=== PATIENT | male | born 1935 | race Two or more races ===

== ENCOUNTER → 2023-12-03 | Outpatient (CLI) | payer OTHER ==
[2023-12-03] VITALS (9 sets, daily range): BP systolic 112–136; BP diastolic 57–76; PULSE 63–69; RESP 15–20; TEMP 98.3; O2SAT 96–99
[~2023-12-03] MED LIST: LISI-275 PO; LOVA20TA4 PO
[2023-12-03] MEDS: fentaNYL CITRATE 100 MCG/2 ML VL IV ONE (08:30)
[2023-12-03] MEDS: MIDAZOLAM HCL 2MG/2ML 2ml VIAL (1mg/ml) IV ONE (08:30)
[2023-12-03] MEDS: LIDOCAINE 2%HCL (LOCAL ANESTH.) INJ 10ml MDV ONE (08:34)
== END | disposition home or self-care (01) ==
LOC: XYW 08:21
DX: R93.2 Abnormal findings on diagnostic imaging of liver and biliary tract (principal); K76.89 Other specified diseases of liver; R16.0 Hepatomegaly, not elsewhere classified
CPT/HCPCS: 47000; 74150; 77012; J2001; 10005

== ENCOUNTER 2024-02-19 22:03 | Inpatient (IN) | payer OTHER ==
[~2024-02-19] VITALS: Ht 175.3 cm; Wt 86.7 kg
[2024-02-19 22:15] VITALS: RESP 24; O2SAT 97
[2024-02-19 23:34] LABS: Urine Bacteria None Seen /hpf (None Seen)
[2024-02-20 00:03] LABS: Urine Blood Negative /uL (Negative); Urine Clarity Turbid (Clear); Urine Color Yellow (Yellow); Urine Hyaline Cast MANY /lpf (0 - 2); Urine Mucus FEW (None Seen); Urine Protein, UAD 1+ (Negative); Urine Specific Gravity 1.022 (1.001-1.035); Urine Urobilinogen Normal (Negative); Urine WBC 2 /hpf (0 - 3)
[2024-02-20] MEDS: SODIUM CHLORIDE 0.9% 1,000 ML IV ONE ×2 (00:25→20:39)
[2024-02-20] MEDS: ONDANSETRON HCL 4 MG/2 ML VIAL IV ONE (00:26)
[2024-02-20] MEDS: KETOROLAC TROMETH 30 MG/ML 1ML VIAL IV ONE (00:26)
[2024-02-20 00:49] LABS: Red Blood Cells 5.28 10^6/uL (4.5-5.90)
[2024-02-20 00:54] LABS: Red Cell Distribution Width 19.1 % (11.8-14.3)
[2024-02-20 00:56] LABS: Hemoglobin 11.9 g/dL (13.5-17.5); Mean Corpuscular Hemoglobin 22.5 pg (28.0-32.0); Mean Corpuscular Hgb Conc. 31.2 g/dL (32.0-36.0); Mean Corpuscular Volume 72.1 fL (80.0-100.0); Platelet Count (auto) 439 10^3/uL (140-450)
[2024-02-20 00:57] LABS: Albumin 3.1 g/dL (3.2-4.8); Alkaline Phosphatase 627 U/L (46-116); Anion Gap 16 (5-15); BUN/Creatinine Ratio 20.2 (10.0-20.0); Blood Urea Nitrogen 50 mg/dL (9-23); Calcium 8.3 mg/dL (8.7-10.4); Carbon Dioxide 17 mmol/L (20-30); Chloride 87 mmol/L (98-107); Glucose 100 mg/dL (74-106); Sodium 120 mmol/L (136-145)
[2024-02-20 00:58] LABS: Bilirubin, Total 2.7 mg/dL (0.2-1.0); Total Protein 5.6 g/dL (5.7-8.2)
[2024-02-20 01:03] LABS: Basophils % (manual) 0 (0.0-2.0); Blast Cells 0; Eosinophils % (manual) 0 (0-7); Metamyelocytes % 0; Myelocytes % 0; Promyelocytes % 0; Reactive Lymphocytes 0
[2024-02-20 01:16] LABS: Alanine Aminotransferase 1374 U/L (7-40); Aspartate Aminotransferase > 6000 U/L (13-40)
[2024-02-20 01:18] LABS: Potassium 6.3 mmol/L (3.5-5.1)
[2024-02-20] MEDS: SODIUM BICARB 8.4% 50Meq/50ml SYR Vial IV ONE (01:43)
[2024-02-20] MEDS: DEXTROSE (50%) 50ML SYRG IV ONE ×2 (01:43→13:43)
[2024-02-20] MEDS: InsuLIN REG 1unit/0.01ml Soln (100units/ml) IV ONE ×2 (01:43→13:45)
[2024-02-20] MEDS: CALCIUM GLUC 1,000mg/50ml-NS 50 ML IV SCH (01:46)
[2024-02-20 02:12] LABS: Band Neutrophils % (manual) 1; Lymphocytes % (manual) 9 (10.0-50.0); Monocytes % (manual) 8 (0-12)
[2024-02-20 02:13] LABS: Hypochromia Slight; Large Platelets FEW; Platelet Estimate Adequa
[2024-02-20 06:08] LABS: Chloride 89 mmol/L (98-107); Potassium 5.3 mmol/L (3.5-5.1); Sodium 124 mmol/L (136-145)
[2024-02-20 06:09] LABS: Anion Gap 14 (5-15); Carbon Dioxide 21 mmol/L (20-30)
[2024-02-20 06:10] LABS: Calcium 8.5 mg/dL (8.7-10.4)
[2024-02-20 06:14] LABS: BUN/Creatinine Ratio 20.8 (10.0-20.0); Blood Urea Nitrogen 52 mg/dL (9-23); Glucose 109 mg/dL (74-106)
[2024-02-20] MEDS: SODIUM CHLORIDE 0.9% 1,000 ML IV SCH (12:16)
[2024-02-20 12:39] LABS: Albumin 3.2 g/dL (3.2-4.8); Alkaline Phosphatase 748 U/L (46-116); Anion Gap 15 (5-15); BUN/Creatinine Ratio 21.2 (10.0-20.0); Bilirubin, Total 3.5 mg/dL (0.2-1.0); Blood Urea Nitrogen 55 mg/dL (9-23); Calcium 8.5 mg/dL (8.7-10.4); Carbon Dioxide 20 mmol/L (20-30); Chloride 88 mmol/L (98-107); Glucose 101 mg/dL (74-106); Sodium 123 mmol/L (136-145); Total Protein 5.7 g/dL (5.7-8.2)
[2024-02-20 12:50] LABS: Potassium 5.6 mmol/L (3.5-5.1)
[2024-02-20 12:51] LABS: Alanine Aminotransferase 2739 U/L (7-40); Aspartate Aminotransferase > 6000 U/L (13-40)
[2024-02-20] MEDS: SODIUM BICARB 8.4% 50Meq/50ml SYR INJ IV ONE (13:43)
[2024-02-20] MEDS: CALCIUM GLUC 1,000mg/50ml-NS 50 ML IV ONE (13:43)
[2024-02-20] MEDS: SODIUM ZIRCONIUM CYCL 10 GM PAK PO SCH (13:43)
[2024-02-20 19:10] VITALS: PULSE 74
[2024-02-20 19:17] LABS: Alkaline Phosphatase 769 U/L (46-116); Anion Gap 16 (5-15); Aspartate Aminotransferase > 1000 U/L (13-40); BUN/Creatinine Ratio 22.2 (10.0-20.0); Bilirubin, Total 3.5 mg/dL (0.2-1.0); Blood Urea Nitrogen 62 mg/dL (9-23); Calcium 8.2 mg/dL (8.7-10.4); Carbon Dioxide 17 mmol/L (20-30); Chloride 90 mmol/L (98-107); Glucose 99 mg/dL (74-106); Potassium 5.4 mmol/L (3.5-5.1); Sodium 123 mmol/L (136-145); Total Protein 5.2 g/dL (5.7-8.2)
[2024-02-20 19:28] LABS: Alanine Aminotransferase 2749 U/L (7-40)
[2024-02-20] MEDS: FUROSEMIDE 40 MG/4 ML VIAL IV ONE (20:43)
[2024-02-20 20:58] LABS: Uric Acid 17.4 mg/dL (3.7-9.2)
[2024-02-20 21:01] LABS: Phosphorus 8.9 mg/dL (2.4-5.1)
[2024-02-20 21:50] LABS: Magnesium 2.1 mg/dL (1.6-2.6)
[2024-02-20 21:51] LABS: Phosphorus 8.6 mg/dL (2.4-5.1)
[2024-02-20] MEDS: OCTREOTIDE ACETATE 100 MCG/ML VL SUBCUT SCH (22:15)
[2024-02-20] MEDS: SODIUM BICARB 50mEq/50ml Vial 50 ML in SOD CHL 0.45% 1,000 ML IV ONE (22:19)
[2024-02-21 01:01] LABS: Alkaline Phosphatase 712 U/L (46-116); Anion Gap 14 (5-15); BUN/Creatinine Ratio 21.4 (10.0-20.0); Blood Urea Nitrogen 62 mg/dL (9-23); Calcium 7.7 mg/dL (8.7-10.4); Carbon Dioxide 20 mmol/L (20-30); Chloride 89 mmol/L (98-107); Glucose 92 mg/dL (74-106); Sodium 123 mmol/L (136-145)
[2024-02-21 01:02] LABS: Bilirubin, Total 3.2 mg/dL (0.2-1.0); Total Protein 5.3 g/dL (5.7-8.2)
[2024-02-21 01:24] LABS: Alanine Aminotransferase 2493 U/L (7-40); Aspartate Aminotransferase > 6000 U/L (13-40)
[2024-02-21] MEDS: NOREPINEPHRINE 8 MG/250ML KIT 250 ML IV SCH (02:37)
[2024-02-21] MEDS: NOREPINEPHRINE 8 MG/250ML KIT 250 ML IV ONE (02:46)
[2024-02-21] MEDS: MIDODRINE HCL 10 MG TAB PO SCH (06:00)
[2024-02-21 06:26] LABS: Albumin 3.1 g/dL (3.2-4.8); Alkaline Phosphatase 755 U/L (46-116); Anion Gap 15 (5-15); BUN/Creatinine Ratio 18.4 (10.0-20.0); Blood Urea Nitrogen 56 mg/dL (9-23); Calcium 7.9 mg/dL (8.7-10.4); Carbon Dioxide 18 mmol/L (20-30); Chloride 88 mmol/L (98-107); Glucose 83 mg/dL (74-106); Sodium 121 mmol/L (136-145)
[2024-02-21 06:27] LABS: Bilirubin, Total 3.4 mg/dL (0.2-1.0); Total Protein 5.7 g/dL (5.7-8.2)
[2024-02-21 06:43] LABS: Alanine Aminotransferase 2477 U/L (7-40); Aspartate Aminotransferase > 6000 U/L (13-40)
[2024-02-21 06:45] LABS: Potassium 5.8 mmol/L (3.5-5.1)
[2024-02-21 08:14] LABS: Base Excess -8.7 mmol/L (-2.0-3.0)
[2024-02-21] MEDS: ALBUTEROL SULF 2.5 MG/0.5ML(0.5%) NEB SOLN NEB ONE (09:47)
[2024-02-21] MEDS: DEXTROSE (50%) 50ML SYRG IV ONE (09:58)
[2024-02-21] MEDS: InsuLIN REG 1unit/0.01ml Soln (100units/ml) IV ONE (09:59)
[2024-02-21] MEDS: CALCIUM GLUC 1,000mg/50ml-NS 50 ML IV ONE (09:59)
[2024-02-21 10:19] LABS: Eosinophils # (auto) 0.1 10 ^3/uL (0-0.8); Monocytes # (auto) 0.6 10 ^3/uL (0-1.3)
[2024-02-21 10:22] LABS: Basophils # (auto) 0.1 10 ^3/uL (0-0.2); Basophils % (auto) 0.9 % (0.0-2.0); Hematocrit 37.9 % (41.0-53.0); Lymphocytes # (auto) 3.3 10 ^3/uL (0.4-5.4); Mean Corpuscular Hemoglobin 22.4 pg (28.0-32.0); Mean Corpuscular Hgb Conc. 31.7 g/dL (32.0-36.0); Mean Corpuscular Volume 70.7 fL (80.0-100.0); Monocytes % (auto) 6.6 % (0.0-12.0); Neutrophils # (auto) 4.5 10 ^3/uL (1.6-8.6); Neutrophils % (auto) 52.5 % (37.0-80.0); Nucleated Red Blood Cells % 0.7 %; Platelet Count (auto) 348 10^3/uL (140-450); Red Blood Cells 5.36 10^6/uL (4.5-5.90); Red Cell Distribution Width 19.1 % (11.8-14.3); White Blood Cell 8.6 10^3/uL (4.4-10.8)
[2024-02-21 10:56] LABS: Lactic Acid w/Reflex 4.4 mmol/L (0.4-2.0)
[2024-02-21] MEDS: ALLOPURINOL 100 MG TAB PO ONE (14:01)
[2024-02-21] MEDS: SOD CHL 0.45% IV SCH (14:01)
[2024-02-21] MEDS: SODIUM BICARB IV SCH (14:01)
[2024-02-21] MEDS: BUMETANIDE 2.5mg/10ml (0.25 mg/ml) INJ IV SCH (15:21)
[2024-02-21] MEDS: SODIUM CHL 0.9% 1000 ML BAG XX ONE (15:28)
[2024-02-21] MEDS: ALBUMIN 25% 100 ML IV ONE ×2 (15:28→15:30)
[2024-02-21] MEDS ORDERED: MORPHINE SULFATE INJ 2 MG/ml SYRG IV PRN (15:45)
[2024-02-21] MEDS ORDERED: NITROGLYCERIN 0.4 MG SL TAB SL PRN (15:45)
[2024-02-21] MEDS: CALCIUM ACETATE 667 MG CAP PO SCH (18:00)
[2024-02-21 18:23] LABS: Albumin 3.8 g/dL (3.2-4.8); Alkaline Phosphatase 700 U/L (46-116); Anion Gap 14 (5-15); Aspartate Aminotransferase > 1000 U/L (13-40); Calcium 8.4 mg/dL (8.7-10.4); Carbon Dioxide 25 mmol/L (20-30); Chloride 91 mmol/L (98-107); Glucose 86 mg/dL (74-106); Total Protein 6.2 g/dL (5.7-8.2)
[2024-02-21 18:32] LABS: Blood Urea Nitrogen 34 mg/dL (9-23); Potassium 3.1 mmol/L (3.5-5.1); Sodium 130 mmol/L (136-145)
[2024-02-21 18:36] LABS: Alanine Aminotransferase 1972 U/L (7-40)
[2024-02-21 19:35] VITALS: O2SAT 96
[2024-02-21 20:59] LABS: Lactic Acid w/Reflex 4.7 mmol/L (0.4-2.0)
[2024-02-21] MEDS ORDERED: EPOETIN ALFA-EPBX 10,000 UNIT/1ML VIAL SC ONE (21:00)
[2024-02-21] MEDS: SODIUM BICARB 8.4% 50Meq/50ml SYR Vial IV ONE (22:36)
[2024-02-21] MEDS: ONDANSETRON HCL 4 MG/2 ML VIAL IV PRN (22:39)
[2024-02-22] VITALS (93 sets, daily range): BP systolic 81–142; BP diastolic 42–92; PULSE 66–94; RESP 11–31; TEMP 96.7–98.4; O2SAT 85–100
[2024-02-22] MEDS ORDERED: APIX5TAB PO (01:15)
[2024-02-22] MEDS ORDERED: LEVO0.5S6 OP (01:15)
[2024-02-22] MEDS ORDERED: METO25TA5 PO (01:15)
[2024-02-22] MEDS: HYDROcodone-ACET 5/325MG TAB PO PRN (04:45)
[2024-02-22 06:17] LABS: Albumin 3.1 g/dL (3.2-4.8); Alkaline Phosphatase 621 U/L (46-116); Anion Gap 16 (5-15); BUN/Creatinine Ratio 18.7 (10.0-20.0); Calcium 7.2 mg/dL (8.7-10.4); Carbon Dioxide 20 mmol/L (20-30); Chloride 90 mmol/L (98-107); Glucose 67 mg/dL (74-106); Potassium 4.3 mmol/L (3.5-5.1); Sodium 126 mmol/L (136-145); Uric Acid 12.6 mg/dL (3.7-9.2)
[2024-02-22 06:18] LABS: Bilirubin, Total 4.3 mg/dL (0.2-1.0); Total Protein 5.2 g/dL (5.7-8.2)
[2024-02-22 06:20] LABS: INR 2.27 (0.9-1.15); Partial Thromboplastin Time 38.3 SEC (24.5-34.5); Prothrombin Time 22.6 sec (9.3-11.8)
[2024-02-22] MEDS: SODIUM BICARB 8.4% 50Meq/50ml SYR Vial IV ONE (06:20)
[2024-02-22 06:29] LABS: Aspartate Aminotransferase 2988 U/L (13-40)
[2024-02-22 06:31] LABS: Alanine Aminotransferase 1593 U/L (7-40); Blood Urea Nitrogen 53 mg/dL (9-23); Lactic Acid w/Reflex 5.6 mmol/L (0.4-2.0)
[2024-02-22 06:37] LABS: Basophils # (auto) 0.2 10 ^3/uL (0-0.2); Basophils % (auto) 2.4 % (0.0-2.0); Eosinophils # (auto) 0.1 10 ^3/uL (0-0.8); Eosinophils % (auto) 0.9 % (0.0-7.0); Hematocrit 36.2 % (41.0-53.0); Hemoglobin 11.4 g/dL (13.5-17.5); Lymphocytes # (auto) 3.8 10 ^3/uL (0.4-5.4); Lymphocytes % (auto) 47.1 % (10.0-50.0); Mean Corpuscular Hemoglobin 22.2 pg (28.0-32.0); Mean Corpuscular Hgb Conc. 31.6 g/dL (32.0-36.0); Mean Corpuscular Volume 70.5 fL (80.0-100.0); Monocytes # (auto) 0.4 10 ^3/uL (0-1.3); Monocytes % (auto) 5.2 % (0.0-12.0); Neutrophils # (auto) 3.6 10 ^3/uL (1.6-8.6); Neutrophils % (auto) 44.4 % (37.0-80.0); Platelet Count (auto) 248 10^3/uL (140-450); Red Blood Cells 5.13 10^6/uL (4.5-5.90); Red Cell Distribution Width 19.4 % (11.8-14.3)
[2024-02-22 08:36] LABS: Hypochromia Moderate; Macrocytosis Slight
[2024-02-22 08:37] LABS: Platelet Estimate Adequate
[2024-02-22] MEDS: SODIUM CHLORIDE 0.9% 1,000 ML IV ONE (08:55)
[2024-02-22] MEDS ORDERED: SODIUM ZIRCONIUM CYCL 10 GM PAK PO SCH (10:00)
[2024-02-22] MEDS: CALCIUM ACETATE 667 MG CAP PO SCH (12:39)
[2024-02-22] MEDS: FLUCONAZOLE 200MG/100ML 100 ML IV ONE (12:39)
[2024-02-22] MEDS: MIDODRINE HCL 10 MG TAB PO SCH (12:39)
[2024-02-22] MEDS: SODIUM CHL 0.9% 1000 ML BAG XX ONE (17:09)
[2024-02-22] MEDS: ALBUMIN 25% 100 ML, ALBUMIN 25% 100 ML IV PRN (17:11)
[2024-02-22] MEDS: NYSTATIN (MOUTH-THROAT) 500,000 UNITS/5 ML SUSP MT SCH (17:38)
[2024-02-23] VITALS (89 sets, daily range): BP systolic 84–167; BP diastolic 43–100; PULSE 64–89; RESP 11–25; TEMP 96.7–97.8; O2SAT 85–100
[2024-02-23 06:20] LABS: Hemoglobin 10.9 g/dL (13.5-17.5)
[2024-02-23 06:23] LABS: Mean Corpuscular Hemoglobin 22.5 pg (28.0-32.0); Mean Corpuscular Hgb Conc. 31.2 g/dL (32.0-36.0); Mean Corpuscular Volume 72.2 fL (80.0-100.0); Platelet Count (auto) 163 10^3/uL (140-450); Red Blood Cells 4.85 10^6/uL (4.5-5.90); Red Cell Distribution Width 19.3 % (11.8-14.3); White Blood Cell 7.2 10^3/uL (4.4-10.8)
[2024-02-23 06:36] LABS: Albumin 3.3 g/dL (3.2-4.8); Alkaline Phosphatase 581 U/L (46-116); Anion Gap 19 (5-15); BUN/Creatinine Ratio 17.6 (10.0-20.0); Blood Urea Nitrogen 49 mg/dL (9-23); Calcium 7.8 mg/dL (8.7-10.4); Carbon Dioxide 21 mmol/L (20-30); Chloride 92 mmol/L (98-107); Glucose 75 mg/dL (74-106); Potassium 4.2 mmol/L (3.5-5.1); Uric Acid 10.1 mg/dL (3.7-9.2)
[2024-02-23 06:37] LABS: Bilirubin, Total 5.4 mg/dL (0.2-1.0); Total Protein 5.3 g/dL (5.7-8.2)
[2024-02-23 06:44] LABS: Lactic Acid w/Reflex 6.1 mmol/L (0.4-2.0)
[2024-02-23 06:48] LABS: Alanine Aminotransferase 1178 U/L (7-40); Aspartate Aminotransferase 1794 U/L (13-40); Sodium 132 mmol/L (136-145)
[2024-02-23 06:55] LABS: Basophils % (manual) 0 (0.0-2.0); Blast Cells 0; Eosinophils % (manual) 0 (0-7); Metamyelocytes % 0; Myelocytes % 0; Promyelocytes % 0; Reactive Lymphocytes 0
[2024-02-23] MEDS: Nepro With Carbsteady Vanilla 8oz Carton PO SCH (08:00)
[2024-02-23 08:44] LABS: Hepatitis B Surface Antigen Negative (Negative)
[2024-02-23 08:50] LABS: Band Neutrophils % (manual) 2; Monocytes % (manual) 5 (0-12)
[2024-02-23 08:51] LABS: Lymphocytes % (manual) 20 (10.0-50.0)
[2024-02-23 08:53] LABS: Anisocytosis Slight; Hypochromia Slight; Platelet Estimate Adequate
[2024-02-23 09:05] LABS: Hepatitis C Antibody Negative (Negative)
[2024-02-23] MEDS: LEVOBUNOLOL 0.5% EACHEYE SCH (10:00)
[2024-02-23] MEDS: ALBUMIN 25% 100 ML IV PRN (10:46)
[2024-02-23] MEDS: SODIUM CHL 0.9% 1000 ML BAG XX ONE (10:48)
[2024-02-23] MEDS: ALBUMIN 25% 100 ML IV ONE (11:00)
[2024-02-23] MEDS: FLUCONAZOLE 200MG/100ML 100 ML IV SCH (12:28)
[2024-02-23 16:29] LABS: Urine Bacteria FEW /hpf (None Seen); Urine Blood 3+ /uL (Negative); Urine Clarity Ex.Turbid (Clear); Urine Color Dark-Yellow (Yellow); Urine Hyaline Cast MOD /lpf (0 - 2); Urine Mucus FEW (None Seen); Urine Protein, UAD 3+ (Negative); Urine Specific Gravity 1.041 (1.001-1.035); Urine Sperm PRESENT /hpf (None Seen); Urine Urobilinogen Normal (Negative); Urine WBC 49 /hpf (0 - 3); Urine WBC Clumps PRESENT /hpf (None Seen)
[2024-02-23 17:13] LABS: Lactic Acid w/Reflex 3.8 mmol/L (0.4-2.0)
[2024-02-23 17:28] LABS: Eosinophils % (auto) 0.7 % (0.0-7.0); Mean Corpuscular Hemoglobin 22.4 pg (28.0-32.0)
[2024-02-23 17:31] LABS: Basophils # (auto) 0.2 10 ^3/uL (0-0.2); Basophils % (auto) 3.6 % (0.0-2.0); Eosinophils # (auto) 0 10 ^3/uL (0-0.8); Hematocrit 36.4 % (41.0-53.0); Hemoglobin 10.9 g/dL (13.5-17.5); Lymphocytes # (auto) 2.8 10 ^3/uL (0.4-5.4); Lymphocytes % (auto) 41.5 % (10.0-50.0); Mean Corpuscular Volume 74.9 fL (80.0-100.0); Monocytes # (auto) 0.2 10 ^3/uL (0-1.3); Monocytes % (auto) 2.7 % (0.0-12.0); Neutrophils # (auto) 3.5 10 ^3/uL (1.6-8.6); Neutrophils % (auto) 51.5 % (37.0-80.0); Nucleated Red Blood Cells % 1.9 %; Platelet Count (auto) 118 10^3/uL (140-450); Red Blood Cells 4.86 10^6/uL (4.5-5.90); Red Cell Distribution Width 19.4 % (11.8-14.3); White Blood Cell 6.7 10^3/uL (4.4-10.8)
[2024-02-23 19:12] LABS: Hypochromia Moderate; Platelet Estimate Decreased; Target Cell FEW
[2024-02-23 19:15] LABS: Large Platelets FEW
[2024-02-24] VITALS (97 sets, daily range): BP systolic 81–124; BP diastolic 6–87; PULSE 61–86; RESP 11–26; TEMP 96.6–97.9; O2SAT 85–100
[2024-02-24 06:19] LABS: Mean Corpuscular Volume 71.3 fL (80.0-100.0)
[2024-02-24 06:24] LABS: Hematocrit 32.7 % (41.0-53.0); Hemoglobin 10.3 g/dL (13.5-17.5); Mean Corpuscular Hemoglobin 22.5 pg (28.0-32.0); Mean Corpuscular Hgb Conc. 31.5 g/dL (32.0-36.0); Platelet Count (auto) 105 10^3/uL (140-450); Red Blood Cells 4.58 10^6/uL (4.5-5.90); Red Cell Distribution Width 19.6 % (11.8-14.3); White Blood Cell 6.6 10^3/uL (4.4-10.8)
[2024-02-24 06:36] LABS: Alanine Aminotransferase 770 U/L (7-40); Albumin 3.1 g/dL (3.2-4.8); Alkaline Phosphatase 533 U/L (46-116); Anion Gap 16 (5-15); BUN/Creatinine Ratio 18.8 (10.0-20.0); Bilirubin, Total 6.3 mg/dL (0.2-1.0); Blood Urea Nitrogen 54 mg/dL (9-23); Calcium 8.3 mg/dL (8.7-10.4); Carbon Dioxide 22 mmol/L (20-30); Chloride 97 mmol/L (98-107); Glucose 131 mg/dL (74-106); Potassium 3.6 mmol/L (3.5-5.1); Sodium 135 mmol/L (136-145)
[2024-02-24 06:46] LABS: Aspartate Aminotransferase 980 U/L (13-40)
[2024-02-24 07:04] LABS: Basophils % (manual) 0 (0.0-2.0); Blast Cells 0; Eosinophils % (manual) 0 (0-7); Metamyelocytes % 0; Myelocytes % 0; Promyelocytes % 0; Reactive Lymphocytes 0
[2024-02-24 08:35] LABS: Band Neutrophils % (manual) 12; Hypochromia Moderate; Lymphocytes % (manual) 8 (10.0-50.0); Monocytes % (manual) 5 (0-12); Platelet Estimate Decreased
[2024-02-24 08:36] LABS: Target Cell MODERATE
[2024-02-24] MEDS: NOREPINEPHRINE 8 MG/250ML KIT 250 ML IV SCH (17:30)
[2024-02-24] MEDS: MELATONIN 5 MG TAB PO PRN (21:33)
[2024-02-25] VITALS (99 sets, daily range): BP systolic 85–125; BP diastolic 48–74; PULSE 57–86; RESP 9–23; TEMP 97.1–98.1; O2SAT 85–100
[2024-02-25 06:27] LABS: Alanine Aminotransferase 591 U/L (7-40); Alkaline Phosphatase 540 U/L (46-116); Anion Gap 13 (5-15); Aspartate Aminotransferase 721 U/L (13-40); Calcium 8.5 mg/dL (8.7-10.4); Carbon Dioxide 23 mmol/L (20-30); Chloride 98 mmol/L (98-107); Glucose 141 mg/dL (74-106); Potassium 3.4 mmol/L (3.5-5.1); Sodium 134 mmol/L (136-145); Uric Acid 10.1 mg/dL (3.7-9.2)
[2024-02-25 06:28] LABS: Bilirubin, Total 6.4 mg/dL (0.2-1.0); Total Protein 4.9 g/dL (5.7-8.2)
[2024-02-25 06:29] LABS: Blood Urea Nitrogen 69 mg/dL (9-23)
[2024-02-25 07:16] LABS: Hematocrit 35.4 % (41.0-53.0); Mean Corpuscular Hgb Conc. 31.1 g/dL (32.0-36.0); Mean Corpuscular Volume 70.9 fL (80.0-100.0); Platelet Count (auto) 88 10^3/uL (140-450); Red Cell Distribution Width 19.3 % (11.8-14.3); White Blood Cell 8.2 10^3/uL (4.4-10.8)
[2024-02-25 07:19] LABS: Band Neutrophils % (manual) 0; Basophils % (manual) 0 (0.0-2.0); Blast Cells 0; Metamyelocytes % 0; Myelocytes % 0; Promyelocytes % 0; Reactive Lymphocytes 0
[2024-02-25 10:24] LABS: Eosinophils % (manual) 1 (0-7); Lymphocytes % (manual) 6 (10.0-50.0); Monocytes % (manual) 2 (0-12)
[2024-02-25 10:27] LABS: Platelet Estimate Decreased
[2024-02-25 10:28] LABS: Giant Platelets Few; Hypochromia Moderate
[2024-02-25] MEDS ORDERED: HEPARIN DRIP/D5W 100UNITS/ML 250 ML IV SCH (18:45)
[2024-02-25] MEDS: BUMETANIDE 2.5mg/10ml (0.25 mg/ml) INJ IV SCH (19:27)
[2024-02-25 20:26] LABS: Red Blood Cells 5.23 10^6/uL (4.5-5.90)
[2024-02-25 20:31] LABS: Hematocrit 37.8 % (41.0-53.0); Hemoglobin 11.7 g/dL (13.5-17.5); Mean Corpuscular Hemoglobin 22.3 pg (28.0-32.0); Mean Corpuscular Hgb Conc. 30.9 g/dL (32.0-36.0); Mean Corpuscular Volume 72.2 fL (80.0-100.0); Platelet Count (auto) 70 10^3/uL (140-450); Red Cell Distribution Width 19.2 % (11.8-14.3); White Blood Cell 8.9 10^3/uL (4.4-10.8)
[2024-02-25 20:41] LABS: Basophils % (manual) 0 (0.0-2.0); Blast Cells 0; Eosinophils % (manual) 0 (0-7); Metamyelocytes % 0; Myelocytes % 0; Promyelocytes % 0; Reactive Lymphocytes 0
[2024-02-25 20:57] LABS: INR 1.55 (0.9-1.15); Partial Thromboplastin Time 34.7 SEC (24.5-34.5); Prothrombin Time 15.9 sec (9.3-11.8)
[2024-02-25 21:16] LABS: Lymphocytes % (manual) 5 (10.0-50.0); Monocytes % (manual) 3 (0-12)
[2024-02-25 21:17] LABS: Band Neutrophils % (manual) 2; Hypochromia Moderate; Macrocytosis Slight; Platelet Estimate Decreased
[2024-02-25 21:18] LABS: Target Cell FEW; Tear Drop Cells FEW
[2024-02-25] MEDS: HEPARIN SODIUM (PORCINE) 5000 UNITS/ML 1ML VIAL SC SCH (23:00)
[2024-02-26] VITALS (96 sets, daily range): BP systolic 84–133; BP diastolic 48–76; PULSE 61–87; RESP 8–25; TEMP 96.3–98.1; O2SAT 85–100
[2024-02-26 07:13] LABS: Alanine Aminotransferase 459 U/L (7-40); Albumin 2.7 g/dL (3.2-4.8); Alkaline Phosphatase 500 U/L (46-116); Anion Gap 13 (5-15); BUN/Creatinine Ratio 19.2 (10.0-20.0); Blood Urea Nitrogen 71 mg/dL (9-23); Calcium 8.5 mg/dL (8.7-10.4); Carbon Dioxide 23 mmol/L (20-30); Chloride 99 mmol/L (98-107); Glucose 101 mg/dL (74-106); Potassium 3.6 mmol/L (3.5-5.1); Sodium 135 mmol/L (136-145)
[2024-02-26 07:14] LABS: Aspartate Aminotransferase 588 U/L (13-40); Bilirubin, Total 6.7 mg/dL (0.2-1.0); Total Protein 4.6 g/dL (5.7-8.2)
[2024-02-26 07:45] LABS: Basophils # (auto) 0.1 10 ^3/uL (0-0.2); Basophils % (auto) 0.9 % (0.0-2.0); Eosinophils # (auto) 0.1 10 ^3/uL (0-0.8); Eosinophils % (auto) 0.6 % (0.0-7.0); Hematocrit 35.9 % (41.0-53.0); Hemoglobin 11.3 g/dL (13.5-17.5); Lymphocytes # (auto) 3.1 10 ^3/uL (0.4-5.4); Lymphocytes % (auto) 35.8 % (10.0-50.0); Mean Corpuscular Hemoglobin 22.4 pg (28.0-32.0); Mean Corpuscular Hgb Conc. 31.5 g/dL (32.0-36.0); Mean Corpuscular Volume 71.3 fL (80.0-100.0); Monocytes # (auto) 0.3 10 ^3/uL (0-1.3); Monocytes % (auto) 3.5 % (0.0-12.0); Neutrophils # (auto) 5.1 10 ^3/uL (1.6-8.6); Neutrophils % (auto) 59.2 % (37.0-80.0); Nucleated Red Blood Cells % 2.4 %; Platelet Count (auto) 67 10^3/uL (140-450); Red Blood Cells 5.04 10^6/uL (4.5-5.90); Red Cell Distribution Width 19.1 % (11.8-14.3); White Blood Cell 8.7 10^3/uL (4.4-10.8)
[2024-02-26] MEDS ORDERED: HEPARIN 1,000 UNITS/ml 1ML VIAL IV ONE ×4 (10:30→15:00)
[2024-02-26] MEDS: CATHFLO ACTIVASE (ALTEPLASE) 2 MG VIAL IV ONE (11:21)
[2024-02-26] MEDS: SODIUM CHLORIDE 0.9% 500 ML IV ONE (18:30)
[2024-02-26] MEDS: SODIUM CHLORIDE 0.9% 1,000 ML IV ONE (22:04)
[2024-02-27] VITALS (82 sets, daily range): BP systolic 82–120; BP diastolic 44–70; PULSE 63–92; RESP 7–27; TEMP 97.5–98.6; O2SAT 82–100
[2024-02-27 06:10] LABS: Hematocrit 36.2 % (41.0-53.0); Hemoglobin 11.4 g/dL (13.5-17.5); Mean Corpuscular Hemoglobin 22.6 pg (28.0-32.0); Mean Corpuscular Hgb Conc. 31.4 g/dL (32.0-36.0); Mean Corpuscular Volume 71.8 fL (80.0-100.0); Platelet Count (auto) 59 10^3/uL (140-450); Red Blood Cells 5.04 10^6/uL (4.5-5.90); Red Cell Distribution Width 19.4 % (11.8-14.3); White Blood Cell 9.6 10^3/uL (4.4-10.8)
[2024-02-27 06:23] LABS: INR 1.48 (0.9-1.15); Partial Thromboplastin Time 34.5 SEC (24.5-34.5); Prothrombin Time 15.2 sec (9.3-11.8)
[2024-02-27 06:35] LABS: Basophils % (manual) 0 (0.0-2.0); Blast Cells 0; Eosinophils % (manual) 0 (0-7); Lactic Acid w/Reflex 2.5 mmol/L (0.4-2.0); Metamyelocytes % 0; Myelocytes % 0; Promyelocytes % 0; Reactive Lymphocytes 0
[2024-02-27 06:36] LABS: Alanine Aminotransferase 338 U/L (7-40); Albumin 2.6 g/dL (3.2-4.8); Alkaline Phosphatase 476 U/L (46-116); Anion Gap 13 (5-15); Aspartate Aminotransferase 440 U/L (13-40); BUN/Creatinine Ratio 19.2 (10.0-20.0); Bilirubin, Total 6.6 mg/dL (0.2-1.0); Blood Urea Nitrogen 63 mg/dL (9-23); Calcium 8.2 mg/dL (8.7-10.4); Carbon Dioxide 23 mmol/L (20-31); Chloride 101 mmol/L (98-107); Glucose 99 mg/dL (74-106); Phosphorus 5.7 mg/dL (2.4-5.1); Potassium 3.7 mmol/L (3.5-5.1); Sodium 137 mmol/L (136-145); Total Protein 4.4 g/dL (5.7-8.2); Uric Acid 9.5 mg/dL (3.7-9.2)
[2024-02-27 07:27] LABS: Band Neutrophils % (manual) 5; Lymphocytes % (manual) 19 (10.0-50.0); Monocytes % (manual) 6 (0-12)
[2024-02-27 07:28] LABS: Hypochromia Moderate; Target Cell FEW
[2024-02-27 07:29] LABS: Platelet Estimate Decreased
[2024-02-27] MEDS: SODIUM CHLORIDE 0.9% 1,000 ML IV ONE (11:58)
== END 2024-02-27 21:21 | disposition short-term general hospital (02) | DRG 441 ==
LOC: EDBD 22:03 → ER 22:03 → TELE 02-21 15:40 → ICU CENTRL 02-22 00:44
PROVIDERS: ADMIT Hospitalist; ATTEND Internal Medicine
PROC: 06HY33Z Insertion of Infusion Device into Lower Vein, Percutaneous Approach (ICD-10-PCS; principal; 2024-02-21)
PROC: 5A1D70Z Performance of Urinary Filtration, Intermittent, Less than 6 Hours Per Day (ICD-10-PCS; 2024-02-21)
PROC: 5A1D70Z Performance of Urinary Filtration, Intermittent, Less than 6 Hours Per Day (ICD-10-PCS; 2024-02-22)
PROC: 5A1D70Z Performance of Urinary Filtration, Intermittent, Less than 6 Hours Per Day (ICD-10-PCS; 2024-02-23)
DX: K72.90 Hepatic failure, unspecified without coma (principal); E88.3 Tumor lysis syndrome; C22.0 Liver cell carcinoma; E87.1 Hypo-osmolality and hyponatremia; E87.20 Acidosis, unspecified; R18.8 Other ascites; D68.9 Coagulation defect, unspecified; E44.1 Mild protein-calorie malnutrition; N17.9 Acute kidney failure, unspecified; I95.9 Hypotension, unspecified; E87.5 Hyperkalemia; I10 Essential (primary) hypertension; R74.01 Elevation of levels of liver transaminase levels; E88.09 Other disorders of plasma-protein metabolism, not elsewhere classified; E83.39 Other disorders of phosphorus metabolism; E78.00 Pure hypercholesterolemia, unspecified; J44.9 Chronic obstructive pulmonary disease, unspecified; E79.0 Hyperuricemia without signs of inflammatory arthritis and tophaceous disease; I73.9 Peripheral vascular disease, unspecified; D69.6 Thrombocytopenia, unspecified; Z68.28 Body mass index [BMI] 28.0-28.9, adult; Z85.05 Personal history of malignant neoplasm of liver; Z79.899 Other long term (current) drug therapy; Z99.2 Dependence on renal dialysis
CPT/HCPCS: 36415; 36600; 71045; 74176; 76775; 80048; 80053; 81001; 82270; 82306; 82805; 82962; 83605; 83615; 83735; 83935; 83970; 84100; 84550; 85007; 85025; 85027; 85362; 85379; 85384; 85610; 85730; 86803; 87040; 87081; 87086; 87340; 90935; 92610; 93005; 93925; 93970; 94640; 97110; 97116; 97163; 97530; G0378; J1450; J1642; J1815; J1885; J2405; P9047